=== PATIENT | female | born 1980 | race Caucasian/White ===

== ENCOUNTER 2016-12-18 13:47 | Inpatient (IN) | payer OTHER ==
[~2016-12-18] VITALS: Ht 167.6 cm; Wt 84.8 kg
--- NOTE | ~2016-12-18 | PR ---
[place], [place] PROGRESS NOTE NAME: RIDGE SUMMERS UNIT #: [id number] ROOM: 521 DOCTOR: FREEDOM BUNN DO BIRTHDATE: [birth year] DOS: 12/20/2016 SUBJECTIVE: Family had been calling, and they called from [place], expressing concern that the patient was having suicidal ideation again. Ne from [place] has contacted the attending who requested that I, Dr. Bunn, get stick with the patient at 7:45 in the evening to assess the patient's mental status along with her depression, anxiety and suicidal ideation. Upon entering the room, patient was sitting upright in bed, pleasant, talking with the nurse. Upon further questioning with the patient, patient expressed no issues or having any thoughts of hurting herself or others. The patient was asked multiple times that she was clearly not suicidal at this time, and the patient agreed. The patient says that she was when she first came in, when she was originally pink slipped down the ICU; however, since then, she has been feeling much better after the treatment and her main concern at this point is just figuring out her discharge planning of where she is going to be staying when she gets discharged. Again, the patient was asked if she was having any thoughts of hurting herself or others and she adamantly insisted that she was feeling well and had no complaints and no thoughts of hurting herself or others. FREEDOM BUNN DO VAZQUEZ CHENEY DO CM:PNTRANS [id number] FREEDOM BUNN DO 12/21/168 interface
[2016-12-18 13:50] VITALS: BP 122/70
[2016-12-18 14:50] LABS: BASO % 0.3 % (0.0-1.0); EOS # 0.2 10*3/uL (0.0-0.4); EOS % 2.3 % (1.0-4.0); HEMATOCRIT 34.3 % (37.0-47.0); HEMOGLOBIN 12.2 g/dl (12.0-16.0); LYMPH # 2.9 10*3/uL (1.3-4.4); LYMPH % 37.1 % (27.0-41.0); MEAN CELL VOLUME 97.4 fl (81.0-99.0); MEAN CORPUSCULAR HGB 34.7 pg (27.0-31.0); MEAN CORPUSCULAR HGB CONC 35.6 g/dl (33.0-37.0); MEAN PLATELET VOLUME 10.3 fl (9.6-12.3); MONO # 0.3 10*3/uL (0.1-1.0); MONO % 4.2 % (3.0-9.0); NEUT # 4.4 10*3/uL (2.3-7.9); NEUT % 55.6 % (47.0-73.0); PLATELET COUNT AUTOMATED 172 10*3/uL (130-400); RED BLOOD COUNT 3.52 10*6/uL (4.10-5.10); RED CELL DISTRI WIDTH 17.4 % (0-14.5); WHITE BLOOD COUNT 7.9 10*3/uL (4.8-10.8)
[2016-12-18 14:57] VITALS: BP 134/70
[2016-12-18 14:59] LABS: INTERNATIONAL NORM RATIO 0.9 (2.0-3.5)
[2016-12-18 15:06] LABS: ALBUMIN 3.6 gm/dl (3.1-4.5); ALKALINE PHOSPHATASE 79 U/L (45-117); BILIRUBIN, TOTAL 0.5 mg/dl (0.2-1.0); BUN 11 mg/dl (7-24); C-REACTIVE PROTEIN 0.88 MG/DL (0-0.3); CARBON DIOXIDE 23 mmol/L (21-32); CHLORIDE 111 mmol/L (98-107); CPK 56 U/L (26-192); EST GLOM FILT AFRICAN AMERICAN > 60 ml/min; GLUCOSE 85 mg/dL (65-99); MAGNESIUM 2.4 mg/dL (1.5-2.1); POTASSIUM 3.7 mmol/L (3.5-5.1); SGOT/AST 34 IU/L (3-35); SGPT/ALT 25 U/L (12-78); SODIUM 145 mmol/L (136-145); TOTAL PROTEIN 7.5 gm/dL (6.4-8.2)
[2016-12-18 15:07] LABS: CKMB < 0.5 ng/ml (0.5-3.6); TROPONIN I < 0.015 ng/ml (<0.045)
[2016-12-18 15:20] VITALS: BP 114/78
[2016-12-18] MEDS ORDERED: HYDROXYZINE PAM25 M1 PO (15:21)
[2016-12-18] MEDS ORDERED: ABILIFY5 MG PO (15:22)
[2016-12-18] MEDS ORDERED: CLONIDINE HCL0.1 MG PO (15:23)
[2016-12-18] MEDS ORDERED: ATENOLOL50 M1 PO (15:23)
[2016-12-18] MEDS ORDERED: TESSALON PERLE100 MG PO (15:24)
[2016-12-18] MEDS ORDERED: IBUPROFEN600 MG PO (15:25)
[2016-12-18 19:25] LABS: BILIRUBIN NEGATIVE (NEGATIVE); BLOOD NEGATIVE (NEGATIVE); CLARITY CLEAR (CLEAR); COLOR YELLOW (YELLOW); GLUCOSE NEGATIVE (NEGATIVE); KETONE NEGATIVE (NEGATIVE); LEUKO ESTERASE 2+ (NEGATIVE); NITRITE NEGATIVE (NEGATIVE); PH 6.5 (5.0-9.0); PROTEIN NEGATIVE (NEGATIVE); SPECIFIC GRAVITY <= 1.005 (1.005-1.030); UROBILINOGEN 0.2 E.U./dl (0.2-1.0)
[2016-12-18 19:35] LABS: URINE AMPHETAMINES < 1000 (1000ng/ml); URINE BARBITURATES < 200 (200ng/ml); URINE COCAINE < 300 (300ng/ml)
[2016-12-18 19:36] LABS: URINE REFLEX COMMENT YES (NO)
[2016-12-18 19:37] LABS: BACTERIA TRACE
[2016-12-18 20:00] VITALS: BP 158/81
[2016-12-19] VITALS (7 sets, daily range): BP systolic 126–170; BP diastolic 74–105
[2016-12-19 06:53] LABS: EOS # 0.1 10*3/uL (0.0-0.4); EOS % 2.4 % (1.0-4.0); HEMATOCRIT 31.7 % (37.0-47.0); LYMPH # 2.1 10*3/uL (1.3-4.4); MEAN CELL VOLUME 99.7 fl (81.0-99.0); MEAN CORPUSCULAR HGB 34.6 pg (27.0-31.0); MEAN CORPUSCULAR HGB CONC 34.7 g/dl (33.0-37.0); MONO # 0.3 10*3/uL (0.1-1.0); MONO % 4.4 % (3.0-9.0); NEUT # 3.3 10*3/uL (2.3-7.9); NEUT % 56.7 % (47.0-73.0); PLATELET COUNT AUTOMATED 139 10*3/uL (130-400); RED BLOOD COUNT 3.18 10*6/uL (4.10-5.10); RED CELL DISTRI WIDTH 17.2 % (0-14.5); WHITE BLOOD COUNT 5.7 10*3/uL (4.8-10.8)
[2016-12-19 07:17] LABS: HEMOGLOBIN A1c 4.9 % (4.8-5.6)
[2016-12-19 07:27] LABS: BILIRUBIN, TOTAL 0.7 mg/dl (0.2-1.0); BUN 11 mg/dl (7-24); CARBON DIOXIDE 23 mmol/L (21-32); CHLORIDE 109 mmol/L (98-107); CHOLESTEROL 161 mg/dL (<200); EST GLOM FILT AFRICAN AMERICAN > 60 ml/min; GLUCOSE 87 mg/dL (65-99); MAGNESIUM 1.9 mg/dL (1.5-2.1); PHOSPHOROUS 3.3 mg/dL (2.5-4.9); POTASSIUM 3.5 mmol/L (3.5-5.1); SGOT/AST 29 IU/L (3-35); SGPT/ALT 21 U/L (12-78); SODIUM 142 mmol/L (136-145); TOTAL PROTEIN 6.3 gm/dL (6.4-8.2); TRIGLYCERIDES 97 mg/dl (<150); VLDL CHOLESTEROL 19 mg/dL (6-40)
[2016-12-19 07:34] LABS: ALBUMIN 3.1 gm/dl (3.1-4.5); ALKALINE PHOSPHATASE 72 U/L (45-117); HDL CHOLESTEROL 64 mg/dl (40-60); LDL CHOLESTEROL 78 mg/dL (9-159)
[2016-12-19 07:49] LABS: FOLIC ACID 6.92 ng/mL (>5.38); VITAMIN D, 25-HYDROXY 21.1 ng/mL (30-100)
[2016-12-19] MEDS ORDERED: NEURONTIN300 MG PO (10:58)
[2016-12-19] MEDS ORDERED: CYMBALTA30 MG PO (10:58)
[2016-12-19] MEDS ORDERED: TRAZODONE50 MG PO (10:59)
[2016-12-19] MEDS ORDERED: NATURE'S BLEND F1 MG PO (10:59)
[2016-12-20] VITALS: BP 126/81
[2016-12-20 04:00] VITALS: BP 143/87
[2016-12-20 06:04] LABS: BUN 6 mg/dl (7-24); CARBON DIOXIDE 25 mmol/L (21-32); CHLORIDE 109 mmol/L (98-107); EST GLOM FILT AFRICAN AMERICAN > 60 ml/min; GLUCOSE 87 mg/dL (65-99); POTASSIUM 3.9 mmol/L (3.5-5.1); SODIUM 142 mmol/L (136-145)
[2016-12-20 06:07] LABS: BASO % 0.2 % (0.0-1.0); EOS # 0.1 10*3/uL (0.0-0.4); EOS % 2.9 % (1.0-4.0); HEMATOCRIT 28.7 % (37.0-47.0); HEMOGLOBIN 10.1 g/dl (12.0-16.0); LYMPH # 2.2 10*3/uL (1.3-4.4); LYMPH % 45.6 % (27.0-41.0); MEAN CORPUSCULAR HGB 35.2 pg (27.0-31.0); MEAN CORPUSCULAR HGB CONC 35.2 g/dl (33.0-37.0); MEAN PLATELET VOLUME 10.6 fl (9.6-12.3); MONO # 0.3 10*3/uL (0.1-1.0); MONO % 6.3 % (3.0-9.0); NEUT # 2.1 10*3/uL (2.3-7.9); NEUT % 44.6 % (47.0-73.0); PLATELET COUNT AUTOMATED 139 10*3/uL (130-400); RED BLOOD COUNT 2.87 10*6/uL (4.10-5.10); RED CELL DISTRI WIDTH 17.1 % (0-14.5); WHITE BLOOD COUNT 4.8 10*3/uL (4.8-10.8)
[2016-12-20 08:00] VITALS: BP 129/83
[2016-12-20 12:00] VITALS: BP 132/87
[2016-12-20 16:00] VITALS: BP 140/88
[2016-12-20 20:00] VITALS: BP 142/90
[2016-12-21] VITALS: BP 134/83
[2016-12-21 08:00] VITALS: BP 128/62
[2016-12-21] MEDS ORDERED: B12,B-12,B 12500 MC1 PO (11:12)
[2016-12-21] MEDS ORDERED: D-1000 185 MG-11 TAB PO (11:14)
[2016-12-21] MEDS ORDERED: METHOCARBAMOL750 M1 PO (11:15)
[2016-12-21 12:00] VITALS: BP 100/61
== END 2016-12-21 16:46 | disposition home or self-care (01) | DRG 896 ==
LOC: EDSTATUS 13:47 → ED 13:49 → EDHOLD 14:18 → 5E 14:18 → ICCU 14:18 → 5E 12-20 10:16
PROVIDERS: Emergency Medicine; Hospitalist
DX: F10.229 Alcohol dependence with intoxication, unspecified (principal); G93.41 Metabolic encephalopathy; F11.10 Opioid abuse, uncomplicated; R45.851 Suicidal ideations; E87.8 Other disorders of electrolyte and fluid balance, not elsewhere classified; I47.1 Supraventricular tachycardia; F10.29 Alcohol dependence with unspecified alcohol-induced disorder; M06.9 Rheumatoid arthritis, unspecified; E53.8 Deficiency of other specified B group vitamins; F12.10 Cannabis abuse, uncomplicated; F14.10 Cocaine abuse, uncomplicated; Y90.9 Presence of alcohol in blood, level not specified; E55.9 Vitamin D deficiency, unspecified; F32.9 Major depressive disorder, single episode, unspecified; F41.9 Anxiety disorder, unspecified; Z71.6 Tobacco abuse counseling; Z82.49 Family history of ischemic heart disease and other diseases of the circulatory system

== ENCOUNTER 2018-01-23 15:22 | Inpatient (IN) | payer OTHER ==
[~2018-01-23] VITALS: Ht 175.3 cm; Wt 92.1 kg
--- NOTE | ~2018-01-23 | EKG ---
[place], [place] ELECTROCARDIOGRAM REPORT NAME: RIDGE SUMMERS UNIT #: [id number] ROOM: 504 DOCTOR: ARTI DRAFT REPORT BIRTHDATE: [birth year] [facility] Test Date: 2018-01-23 Test Time: 18:16:42 Pat Name: RIDGE SUMMERS Department: Room: [facility] 2 Gender: F Manager Zone: SS RESP : 1980 Requested By: TRISHA TOURE Order Number: [id number] Reading MD: Zac Owen MD Measurements Intervals [place] Rate: 67 P: 3 NC: 183 QRS: -2 QRSD: 83 T: -12 QT: 445 QTc: 470 Interpretive Statements Sinus rhythm Borderline T abnormalities, inferior leads Electronically Signed On 01-24-2018 11:13:13 PDT by Zac Owen MD CM:EKGRPT:ELECTROCARDIOGRAM REPORT [id number] TRISHA THOAMS DRAFT REPORT TRISHA TOURE DO
[2018-01-23 14:00] VITALS: BP 100/66
[~2018-01-23 15:22] MED LIST: ABILIFY5 MG PO; ATENOLOL50 M1 PO; B12,B-12,B 12500 MC1 PO; CLONIDINE HCL0.1 MG PO; CYMBALTA30 MG PO; D-1000 185 MG-11 TAB PO; HYDROXYZINE PAM25 M1 PO; IBUPROFEN600 MG PO; METHOCARBAMOL750 M1 PO; NATURE'S BLEND F1 MG PO; NEURONTIN300 MG PO; TESSALON PERLE100 MG PO; TRAZODONE50 MG PO
[2018-01-23 17:53] LABS: BASO % 0.4 % (0.0-1.0); EOS # 0.1 10*3/uL (0.0-0.4); EOS % 2.3 % (1.0-4.0); HEMATOCRIT 38.5 % (37.0-47.0); HEMOGLOBIN 12.7 g/dl (12.0-16.0); LYMPH # 2.2 10*3/uL (1.3-4.4); LYMPH % 45.5 % (27.0-41.0); MEAN CELL VOLUME 104.9 fl (81.0-99.0); MEAN CORPUSCULAR HGB 34.6 pg (27.0-31.0); MEAN PLATELET VOLUME 10.3 fl (9.6-12.3); MONO # 0.3 10*3/uL (0.1-1.0); MONO % 6.8 % (3.0-9.0); NEUT # 2.1 10*3/uL (2.3-7.9); NEUT % 44.8 % (47.0-73.0); PLATELET COUNT AUTOMATED 206 10*3/uL (130-400); RED BLOOD COUNT 3.67 10*6/uL (4.10-5.10); RED CELL DISTRI WIDTH 16.3 % (0-14.5); WHITE BLOOD COUNT 4.7 10*3/uL (4.8-10.8)
[2018-01-23 18:18] LABS: ALBUMIN 3.3 gm/dl (3.1-4.5); ALKALINE PHOSPHATASE 104 U/L (45-117); BUN 5 mg/dl (7-24); CHLORIDE 105 mmol/L (98-107); CREATININE 0.82 mg/dL (0.55-1.02); POTASSIUM 4.1 mmol/L (3.5-5.1); SGOT/AST 146 IU/L (3-35); SGPT/ALT 78 U/L (12-78); SODIUM 140 mmol/L (136-145)
[2018-01-23 18:21] LABS: BETA-HCG, QUANT < 1.0 mIU/mL (1-3)
[2018-01-23 18:51] LABS: BILIRUBIN 1+ (NEGATIVE); BLOOD NEGATIVE (NEGATIVE); CLARITY CLEAR (CLEAR); COLOR YELLOW (YELLOW); GLUCOSE NEGATIVE (NEGATIVE); KETONE TRACE (NEGATIVE); LEUKO ESTERASE TRACE (NEGATIVE); NITRITE POSITIVE (NEGATIVE); PH 6.5 (5.0-9.0); SPECIFIC GRAVITY 1.015 (1.005-1.030)
[2018-01-23 18:59] LABS: BACTERIA 2+
[2018-01-23 19:01] LABS: URINE AMPHETAMINES < 1000 (1000ng/ml); URINE BARBITURATES < 200 (200ng/ml); URINE BENZODIAZEPINES < 200 (200ng/ml); URINE CANNABINOIDS (THC) > 50 (50ng/ml); URINE COCAINE > 300 (300ng/ml); URINE METHADONE < 300 (300ng/ml); URINE OPIATES < 300 (300ng/ml)
[2018-01-23 19:03] LABS: URINE PHENCYCLIDINE < 25 (25ng/ml)
[2018-01-23 20:00] VITALS: BP 105/59
[2018-01-24] VITALS: BP 124/84
[2018-01-24 04:00] VITALS: BP 102/54
[2018-01-24 08:00] VITALS: BP 122/74
[2018-01-24 12:00] VITALS: BP 116/69
[2018-01-24 16:00] VITALS: BP 137/89
[2018-01-24 20:00] VITALS: BP 136/90
[2018-01-25] VITALS: BP 109/75
[2018-01-25 08:00] VITALS: BP 121/76
[2018-01-25 09:20] VITALS: BP 104/65
[2018-01-25 13:43] VITALS: BP 104/60
[2018-01-25 16:00] VITALS: BP 103/63
[2018-01-25 20:00] VITALS: BP 113/62
[2018-01-26] VITALS: BP 113/69
[2018-01-26 06:03] LABS: BASO % 0.2 % (0.0-1.0); EOS # 0.1 10*3/uL (0.0-0.4); EOS % 2.3 % (1.0-4.0); HEMATOCRIT 34.9 % (37.0-47.0); HEMOGLOBIN 11.7 g/dl (12.0-16.0); LYMPH # 2.5 10*3/uL (1.3-4.4); LYMPH % 44.2 % (27.0-41.0); MEAN CELL VOLUME 105.8 fl (81.0-99.0); MEAN CORPUSCULAR HGB 35.5 pg (27.0-31.0); MEAN CORPUSCULAR HGB CONC 33.5 g/dl (33.0-37.0); MEAN PLATELET VOLUME 10.6 fl (9.6-12.3); MONO # 0.4 10*3/uL (0.1-1.0); MONO % 7.4 % (3.0-9.0); NEUT # 2.6 10*3/uL (2.3-7.9); NEUT % 45.5 % (47.0-73.0); PLATELET COUNT AUTOMATED 198 10*3/uL (130-400); RED CELL DISTRI WIDTH 15.9 % (0-14.5); WHITE BLOOD COUNT 5.7 10*3/uL (4.8-10.8)
[2018-01-26 06:12] LABS: CREATININE 0.95 mg/dL (0.55-1.02)
[2018-01-26 08:00] VITALS: BP 109/62
[2018-01-26] MEDS ORDERED: ATARAX,VISTARIL50 MG PO (10:35)
== END 2018-01-26 13:08 | disposition home or self-care (01) | DRG 309 ==
LOC: 5E 15:22
PROVIDERS: Family Medicine; Internal Medicine
DX: I47.1 Supraventricular tachycardia (principal); F10.239 Alcohol dependence with withdrawal, unspecified; F10.29 Alcohol dependence with unspecified alcohol-induced disorder; E53.8 Deficiency of other specified B group vitamins; E55.9 Vitamin D deficiency, unspecified; F17.210 Nicotine dependence, cigarettes, uncomplicated; Y90.9 Presence of alcohol in blood, level not specified; M06.9 Rheumatoid arthritis, unspecified; F14.10 Cocaine abuse, uncomplicated; Z71.6 Tobacco abuse counseling; Z82.49 Family history of ischemic heart disease and other diseases of the circulatory system; Z79.899 Other long term (current) drug therapy

== ENCOUNTER 2020-07-11 15:53 | Inpatient (IN) | payer OTHER ==
[~2020-07-11] VITALS: Ht 175.2 cm; Wt 97.5 kg
[~2020-07-11 15:53] MED LIST changes: +ATARAX,VISTARIL50 MG PO; +GABAPENTIN600 MG PO; +OMEPRAZOLE40 MG PO; +SUBOXONE 8 MG-1 EACH PO
[2020-07-11 16:01] VITALS: BP 153/101
[2020-07-11 19:42] LABS: BASO % 0.4 % (0.0-1.0); EOS # 0.1 10*3/uL (0.0-0.4); EOS % 1.1 % (1.0-4.0); HEMATOCRIT 43.3 % (37.0-47.0); LYMPH # 3.1 10*3/uL (1.3-4.4); LYMPH % 38.2 % (27.0-41.0); MEAN CELL VOLUME 90.8 fl (81.0-99.0); MEAN CORPUSCULAR HGB 28.9 pg (27.0-31.0); MEAN CORPUSCULAR HGB CONC 31.9 g/dl (33.0-37.0); MEAN PLATELET VOLUME 10.2 fl (9.6-12.3); MONO # 0.5 10*3/uL (0.1-1.0); MONO % 5.7 % (3.0-9.0); NEUT # 4.5 10*3/uL (2.3-7.9); NEUT % 54.5 % (47.0-73.0); PLATELET COUNT AUTOMATED 247 10*3/uL (130-400); RED BLOOD COUNT 4.77 10*6/uL (4.10-5.10); RED CELL DISTRI WIDTH 15.9 % (0-14.5); WHITE BLOOD COUNT 8.2 10*3/uL (4.8-10.8)
[2020-07-11 20:03] LABS: ALBUMIN 3.9 gm/dl (3.1-4.5); ALKALINE PHOSPHATASE 111 U/L (45-117); BUN 6 mg/dl (7-24); CHLORIDE 104 mmol/L (98-107); CREATININE 0.93 mg/dL (0.55-1.02); POTASSIUM 4.2 mmol/L (3.5-5.1); SGOT/AST 54 IU/L (3-35); SGPT/ALT 51 U/L (12-78); SODIUM 138 mmol/L (136-145); TOTAL PROTEIN 8.4 gm/dL (6.4-8.2)
[2020-07-11 20:09] LABS: ETHYL ALCOHOL < 3.0 mg/dl (<3); TROPONIN I < 0.015 ng/ml (<0.045)
[2020-07-11 20:49] LABS: BILIRUBIN Negative (Negative); BLOOD Negative (Negative); CLARITY Cloudy (Clear); COLOR Yellow (Yellow); GLUCOSE Negative (Negative); KETONE Negative (Negative); LEUKO ESTERASE 1+ (Negative); NITRITE Positive (Negative)
[2020-07-11 20:57] LABS: URINE AMPHETAMINES < 1000 (1000ng/ml); URINE BARBITURATES < 200 (200ng/ml); URINE BENZODIAZEPINES < 200 (200ng/ml); URINE CANNABINOIDS (THC) < 50 (50ng/ml); URINE COCAINE > 300 (300ng/ml); URINE METHADONE < 300 (300ng/ml); URINE OPIATES < 300 (300ng/ml)
[2020-07-11 21:04] LABS: BACTERIA 4+; WBC 16-20 wbc/hpf (0-5)
[2020-07-11 21:10] LABS: URINE PHENCYCLIDINE < 25 (25ng/ml)
[2020-07-11] MEDS ORDERED: NEURONTIN600 MG PO (21:56)
[2020-07-11] MEDS ORDERED: ATENOLOL100 M1 PO (21:57)
[2020-07-11] MEDS ORDERED: PRILOSEC20 M1 PO (21:57)
[2020-07-11] MEDS ORDERED: SYNTHROID,LEV112 MCG PO (21:58)
[2020-07-11] MEDS ORDERED: SUBOXONE 8 MG-1 EACH SL (21:59)
[2020-07-11] MEDS ORDERED: B121000 MCG/2 IM (22:05)
[2020-07-11 22:49] LABS: LIPASE 408 U/L (73-393)
[2020-07-11 22:50] LABS: BETA-HCG, QUANT < 1.0 mIU/mL (1-3)
[2020-07-11 23:06] VITALS: BP 139/97
[2020-07-12 03:01] VITALS: BP 134/76
[2020-07-12 05:58] VITALS: BP 136/74
[2020-07-12 08:00] VITALS: BP 131/92
[2020-07-12 21:47] VITALS: BP 133/89
[2020-07-13 05:01] VITALS: BP 126/80
[2020-07-13 09:12] VITALS: BP 113/75
[2020-07-13 18:01] VITALS: BP 127/78
[2020-07-13 19:50] VITALS: BP 125/89
[2020-07-13 20:00] VITALS: BP 125/89
[2020-07-14] VITALS: BP 108/71
[2020-07-14 06:19] LABS: BASO % 0.2 % (0.0-1.0); EOS # 0.1 10*3/uL (0.0-0.4); EOS % 1.3 % (1.0-4.0); HEMATOCRIT 36.9 % (37.0-47.0); LYMPH # 2.6 10*3/uL (1.3-4.4); LYMPH % 48.2 % (27.0-41.0); MEAN CELL VOLUME 90.9 fl (81.0-99.0); MEAN CORPUSCULAR HGB 28.8 pg (27.0-31.0); MEAN CORPUSCULAR HGB CONC 31.7 g/dl (33.0-37.0); MEAN PLATELET VOLUME 11.3 fl (9.6-12.3); MONO # 0.4 10*3/uL (0.1-1.0); MONO % 7.2 % (3.0-9.0); NEUT # 2.3 10*3/uL (2.3-7.9); NEUT % 42.7 % (47.0-73.0); PLATELET COUNT AUTOMATED 203 10*3/uL (130-400); RED BLOOD COUNT 4.06 10*6/uL (4.10-5.10); RED CELL DISTRI WIDTH 15.7 % (0-14.5); WHITE BLOOD COUNT 5.4 10*3/uL (4.8-10.8)
[2020-07-14 06:38] LABS: CREATININE 0.71 mg/dL (0.55-1.02)
[2020-07-14 08:00] VITALS: BP 107/70
[2020-07-14 12:00] VITALS: BP 114/75
[2020-07-14] MEDS ORDERED: ZOFRAN 4 MG ED2 TAB PO (12:42)
[2020-07-14] MEDS ORDERED: ATARAX,VISTARIL50 MG PO (12:42)
== END 2020-07-14 13:30 | disposition home or self-care (01) | DRG 774 ==
LOC: ED 15:53 → 5E 21:26 → EDHOLD 21:26 → 5E 07-13 18:15
PROVIDERS: Hospitalist; Physician Assistant; ADMIT Student in an Organized Health Care Education/Training Program; ATTEND Student in an Organized Health Care Education/Training Program
DX: F10.239 Alcohol dependence with withdrawal, unspecified (principal); N39.0 Urinary tract infection, site not specified; F14.10 Cocaine abuse, uncomplicated; R74.01 Elevation of levels of liver transaminase levels; Z71.6 Tobacco abuse counseling; E03.9 Hypothyroidism, unspecified; M06.9 Rheumatoid arthritis, unspecified; E53.8 Deficiency of other specified B group vitamins; Z91.013 Allergy to seafood; Z98.891 History of uterine scar from previous surgery; Z82.49 Family history of ischemic heart disease and other diseases of the circulatory system; Z79.899 Other long term (current) drug therapy